=== PATIENT | female | born 1945 | race Caucasian/White ===

== ENCOUNTER → 2019-10-11 10:09 | Outpatient (CLI) | payer MEDICARE ==
[2019-10-13 10:57] VITALS: BMI 19.6
== END | disposition home or self-care (01) ==
LOC: D.RAD 10:09
PROVIDERS: ATTEND Internal Medicine Pulmonary Disease
DX: J44.9 Chronic obstructive pulmonary disease, unspecified (principal)

== ENCOUNTER 2019-10-13 10:51 | Inpatient (IN) | payer MEDICARE ==
[~2019-10-13] VITALS: Ht 157.5 cm; Wt 46.4 kg
[2019-10-13 11:45] LABS: BASOPHILS 0 % (0-2); EOSINOPHILS 0 % (0-7); HEMATOCRIT 37.5 % (36.0-48.0); HEMOGLOBIN 12.9 g/dL (12-16); IMMATURE GRANULOCYTES 0.1 % (0-5); LYMPHOCYTES 5.1 % (15-50); MCH 27.9 pg (26.0-34.0); MCHC 34.4 g/dL (31.0-37.0); MCV 81.2 fL (80.0-100.0); MEAN PLATELET VOLUME 8.9 fL (7.4-10.4); MONOCYTES 1.8 % (2-11); PLATELET COUNT 205 10x3/uL (130-400); RBC 4.62 10x6/uL (4.00-5.40); RDW 13.2 % (11.5-14.5); WBC 7.3 10x3/uL (4.8-10.8)
[2019-10-13 11:59] LABS: APTT 26.9 SECONDS (22.8-39.4); INR 0.93 (0.85-1.17); PROTIME 12.4 SECONDS (11.6-15.0)
[2019-10-13 12:18] LABS: ALBUMIN 3.9 g/dL (3.4-5.0); ALKALINE PHOSPHATASE 57 U/L (30-120); ALT (SGPT) 20 U/L (10-68); BILIRUBIN - TOTAL 0.49 mg/dL (0.2-1.3); CALC OSMOLALITY 252 mosm/kg (275-300); CALCIUM 8.3 mg/dL (8.5-10.1); CHLORIDE - SERUM 91 mmol/L (98-107); CKMB 4.1 U/L (0.0-3.6); CREATINE KINASE 120 UL (21-215); CREATININE - SERUM 0.9 mg/dL (0.6-1.3); GLUCOSE 137 mg/dL (74-106); PRO BNP 249 pg/mL (0-450); PROTEIN - SERUM 7.1 g/dL (6.4-8.2); SODIUM 126 mmol/L (136-145); UREA NITROGEN 8 mg/dL (7-18); eGFR NON AFRICAN AMERICAN 65 mL/min (90-120)
[2019-10-13 12:24] LABS: TROPONIN-I < 0.017 ng/mL (0.000-0.060)
[2019-10-13 12:39] LABS: POTASSIUM - SERUM 2.4 mmol/L (3.5-5.1)
[2019-10-13 13:00] VITALS: BP 159/96
--- NOTE | 2019-10-13 13:00 | NUR ---
RECEIVED PT TP ROOM AT THIS TIME.
[2019-10-13 14:00] VITALS: BP 148/87
[2019-10-13 16:22] VITALS: BP 149/92
[2019-10-13 20:00] VITALS: BP 153/91
--- NOTE | 2019-10-13 20:00 | NUR ---
PATIENT RESTING IN BED WATCHING TV. NO S/S OF ACUTE DISTRESS. NO C/O AT THIS TIME. PATIENT IS ON 3L OF O2 NASAL CANNULA. PATIENT HAS LEFT FOREARM SALINE LOC. IV IS PATENT WITHOUT REDNESS, SWELLING, OR TENDERNESS. PATIENT IS UP WITH ASSIST TO THE BATHROOM. PATIENT HAS SOB UPON EXERTION. CALL LIGHT WITHIN REACH. WILL CONTINUE TO MONITOR.
[2019-10-14] VITALS: BP 180/99
[2019-10-14 04:00] VITALS: BP 171/93
[2019-10-14] MEDS ORDERED: INCRUSE ELLI62.5 MCG INH (04:08)
[2019-10-14] MEDS ORDERED: ATIVAN0.5 MG PO (04:09)
[2019-10-14] MEDS ORDERED: FLUTICASONE PRO16 GM NASAL (04:10)
[2019-10-14] MEDS ORDERED: HYDROCODON-ACE1 EA10 PO (04:12)
[2019-10-14] MEDS ORDERED: GABAPENTIN300 MG PO (04:15)
[2019-10-14] MEDS ORDERED: MOBIC7.5 MG PO (04:15)
[2019-10-14] MEDS ORDERED: ALBUTEROL SULF8.5 GM INH (04:15)
[2019-10-14] MEDS ORDERED: LISINOPRIL-HCT1 EAC4 PO (04:17)
[2019-10-14] MEDS ORDERED: FLORINEF 0.1 M0.1 MG PO (04:17)
[2019-10-14] MEDS ORDERED: ISOSORBIDE MONO30 M1 (04:17)
[2019-10-14] MEDS ORDERED: K-DUR20 MEQ PO (04:18)
[2019-10-14] MEDS ORDERED: CLARITIN 10 MG10 MG PO (04:18)
[2019-10-14 05:46] LABS: BASOPHILS 0 % (0-2); EOSINOPHILS 0 % (0-7); HEMATOCRIT 38.6 % (36.0-48.0); HEMOGLOBIN 13.1 g/dL (12-16); IMMATURE GRANULOCYTES 0.2 % (0-5); MCH 27.6 pg (26.0-34.0); MCHC 33.9 g/dL (31.0-37.0); MCV 81.3 fL (80.0-100.0); MEAN PLATELET VOLUME 9.1 fL (7.4-10.4); NEUTROPHILS 87.8 % (40-80); PLATELET COUNT 221 10x3/uL (130-400); RBC 4.75 10x6/uL (4.00-5.40); RDW 13.2 % (11.5-14.5)
[2019-10-14 05:51] LABS: WBC 5.3 10x3/uL (4.8-10.8)
[2019-10-14 06:11] LABS: ALBUMIN 3.7 g/dL (3.4-5.0); ALKALINE PHOSPHATASE 54 U/L (30-120); ALT (SGPT) 19 U/L (10-68); BILIRUBIN - TOTAL 0.53 mg/dL (0.2-1.3); CALC OSMOLALITY 264 mosm/kg (275-300); CALCIUM 8.3 mg/dL (8.5-10.1); CHLORIDE - SERUM 96 mmol/L (98-107); CREATININE - SERUM 0.7 mg/dL (0.6-1.3); GLUCOSE 126 mg/dL (74-106); MAGNESIUM - SERUM 2.2 mg/dL (1.8-2.4); PROTEIN - SERUM 6.8 g/dL (6.4-8.2); SODIUM 132 mmol/L (136-145); UREA NITROGEN 8 mg/dL (7-18); eGFR NON AFRICAN AMERICAN 86 mL/min (90-120)
[2019-10-14 08:00] VITALS: BP 192/104
--- NOTE | 2019-10-14 09:49 | NUR ---
PT IS NEEDING HER NEUROTIN AND BP MEDICATION, EXPLAINED THAT HER MED REC IS COMPLETED AND I AM JUST WAITING ON DOCTORS TO RESTART MEDICATION, PT DAUGHTER AT BEDSIDE AND ASKED THAT HER LINENS BE CHANGED. NO OTHER NEEDS VOICED AT THIS TIME. CONTINUE WITH PLAN OF CARE
--- NOTE | 2019-10-14 10:18 | NUR ---
PT IS C/O CP AND SHORTNESS OF BREATH AND POUNDING HEADACHE. PT O2 IS 98% BP 192/104 NO BP MEDICATION STARTED YET, PT DAUGHTER HAS PT'S AT BEDSIDE AND GAVE IT TO HER, EKG SHOWED NORMAL SR. TELEMETRY ORDERED AND PLACED ON PT CONTINUE WITH PLAN OF CARE
[2019-10-14 12:00] VITALS: BP 185/89
--- NOTE | 2019-10-14 13:05 | NUR ---
I have reviewed this patient and I concur with the Shift Assessment completed by the Licensed Practical Nurse today this shift.
[2019-10-14 14:48] VITALS: BMI 19.4
[2019-10-14 16:00] VITALS: BP 131/80
[2019-10-14 16:40] LABS: POTASSIUM - URINE 31.9 MMOL/L (12.0-62.0)
[2019-10-14 20:00] VITALS: BP 128/77
--- NOTE | 2019-10-14 20:00 | NUR ---
PATIENT RESTING IN BED WITH DAUGHTER AT BEDSIDE. NO S/S OF ACUTE DISTRESS. NO C/O AT THIS TIME. PATIENT IS ON 3L NASAL CANNULA AND HAS BIPAP PRN. PATIENT HAS LEFT FOREARM, SALINE LOC. IV IS PATENT WITHOUT REDNESS, SWELLING, OR TENDERNESS. PATIENT HAS TELEMETRY. PATIENT IS UP WITH ASSIST TO BEDSIDE COMMODE. CALL LIGHT WITHIN REACH. WILL CONTINUE TO MONITOR.
--- NOTE | 2019-10-15 02:13 | NUR ---
I have reviewed this patient and I concur with the Shift Assessment completed by the Licensed Practical Nurse today this shift.
[2019-10-15 06:44] LABS: HEMATOCRIT 38.7 % (36.0-48.0); HEMOGLOBIN 12.8 g/dL (12-16); LYMPHOCYTES 9.6 % (15-50); MCH 27.8 pg (26.0-34.0); MCHC 33.1 g/dL (31.0-37.0); MEAN PLATELET VOLUME 8.7 fL (7.4-10.4); NEUTROPHILS 87.1 % (40-80); PLATELET COUNT 250 10x3/uL (130-400); RDW 13.4 % (11.5-14.5)
[2019-10-15 06:45] LABS: MCV 84.1 fL (80.0-100.0)
[2019-10-15 07:17] LABS: ALBUMIN 3.3 g/dL (3.4-5.0); ANION GAP 10.3 mmol/L (8-16); BILIRUBIN - TOTAL 0.38 mg/dL (0.2-1.3); CARBON DIOXIDE 28.1 mmol/L (21.0-32.0); CREATININE - SERUM 0.8 mg/dL (0.6-1.3); MAGNESIUM - SERUM 2.2 mg/dL (1.8-2.4); POTASSIUM - SERUM 3.4 mmol/L (3.5-5.1); PROTEIN - SERUM 6.3 g/dL (6.4-8.2)
--- NOTE | 2019-10-15 07:26 | NUR ---
PT K+ IS 3.4 THIS MORNING, WILL ADMINISTER 40MEQ OF K+ WITH MORNING MEDS, NO OTHER NEEDS AT THIS TIME, CONTINUE WITH PLAN OF CARE
[2019-10-15 08:51] VITALS: BP 138/85
--- NOTE | 2019-10-15 10:08 | NUR ---
PATIENT ALERT AND ORIENTED. RESTING QUIETLY IN BED WITH EYES OPEN. RESPIRATIONS SOB COUGHING UP MUCUS. NO SIGNS OF DISTRESS NOTED. O2 3L. IV LEFTFOREARM SALINE LOCK. TELEMETRY SINUS TACH 106. SIDE RAILS UP X3. CALL LIGHT IN REACH. WILL CONTINUE TO MONITOR.
[2019-10-15 14:02] VITALS: BP 137/77
--- NOTE | 2019-10-15 17:35 | NUR ---
PATIENT ALERT AND ORIENTED. RETURNED FROM XRAY. RESPIRATIONS EVEN NON LABORED. NO SIGNS OF DISTRESS NOTED. STATES PAIN IS "10." NORCO GIVEN AND TOLERATED WELL. POTASSTIUM LEVEL 3.5. PO POTASSIUM GIVEN AND TOLERATED WELL. DENIES FURTHER NEEDS. SIDE RAILS UPX3. CALL LIGHT IN REACH. WILL CONTINUE TO MONITOR FOR SAFETY.
[2019-10-15 18:21] VITALS: BP 130/46
--- NOTE | 2019-10-15 18:41 | NUR ---
PATIENT ALERT AND ORIENTED. IN BED RESTING QUIETLY. RSPIRATIONS EVEN NONLABORED. NO SIGNS OF DISTRESS NOTED. DENIES FURTHER NEEDS. SIDE RAILS UP X3. CALL LIGHT IN REACH. WILL CONTINUE TO MONITOR FOR SAFETY.
[2019-10-15 20:00] VITALS: BP 135/77
--- NOTE | 2019-10-15 20:00 | NUR ---
PATIENT RESTING IN BED WATCHING TV. NO S/S OF ACUTE DISTRESS. NO C/O AT THIS TIME. PATIENT IS ON 3L NASAL CANNULA AND HAS BIPAP PRN. PATIENT HAS A LEFT FOREARM SALINE LOC. IV IS PATENT WITHOUT REDNESS, SWELLING, OR TENDERNESS. PATIENT IS ON TELEMETRY. PATIENT IS UP ADLIB BUT HAS SOB UPON EXERTION. CALL LIGHT WITHIN REACH. WILL CONTINUE TO MONITOR.
--- NOTE | 2019-10-15 20:05 | NUR ---
MARKED EX WHEEZING NOTED TO ANTERIOR PINTO AUSC. APPLIED [id number] 35% PER SOB PT TOLERATED WELL SPO2 95% AND HOLDING NURSE NOTIFIED
--- NOTE | 2019-10-16 00:30 | NUR ---
PATIENT IV INFILTRATED. IV TAKEN OUT OF LEFT FOREARM. CATHETER TIP INTACT. NEW IV PLACED IN RIGHT FOREARM. IV IS PATENT WITHOUT REDNESS, SWELLING, OR TENDERNESS. IV IS SALINE LOC. CALL LIGHT WITHIN REACH. WILL CONTINUE TO MONITOR.
--- NOTE | 2019-10-16 03:00 | NUR ---
I have reviewed this patient and I concur with the Shift Assessment completed by the Licensed Practical Nurse today this shift.
[2019-10-16 04:00] VITALS: BP 141/87
[2019-10-16 07:52] LABS: HEMOGLOBIN 13.5 g/dL (12-16); LYMPHOCYTES 4.3 % (15-50); MCH 27.8 pg (26.0-34.0); MCHC 32.9 g/dL (31.0-37.0); MCV 84.4 fL (80.0-100.0); MEAN PLATELET VOLUME 8.9 fL (7.4-10.4); NEUTROPHILS 93.3 % (40-80); PLATELET COUNT 303 10x3/uL (130-400); RBC 4.86 10x6/uL (4.00-5.40); RDW 13.2 % (11.5-14.5); WBC 6.6 10x3/uL (4.8-10.8)
[2019-10-16 08:09] LABS: ALBUMIN 3.7 g/dL (3.4-5.0); ALKALINE PHOSPHATASE 50 U/L (30-120); ALT (SGPT) 22 U/L (10-68); BILIRUBIN - TOTAL 0.42 mg/dL (0.2-1.3); CALC OSMOLALITY 264 mosm/kg (275-300); CALCIUM 8.1 mg/dL (8.5-10.1); CARBON DIOXIDE 27.2 mmol/L (21.0-32.0); CHLORIDE - SERUM 96 mmol/L (98-107); CREATININE - SERUM 0.7 mg/dL (0.6-1.3); GLUCOSE 127 mg/dL (74-106); MAGNESIUM - SERUM 2.1 mg/dL (1.8-2.4); POTASSIUM - SERUM 3.4 mmol/L (3.5-5.1); PROTEIN - SERUM 6.8 g/dL (6.4-8.2); SODIUM 132 mmol/L (136-145); eGFR NON AFRICAN AMERICAN 86 mL/min (90-120)
[2019-10-16 08:17] LABS: UREA NITROGEN 8 mg/dL (7-18)
[2019-10-16 09:24] VITALS: BP 159/92
--- NOTE | 2019-10-16 10:54 | NUR ---
PATIENT ALERT AND ORIENTED RESTING IN BED WITH EYES OPEN. REPIRATIONS EVEN NON LABORED. NO SIGNS OF DISTRESS NOTED. ON 3 L O2. RIGHT HAND IV SALINE LOCK. ON TELEMETRY SINUS RHYTHM 93. FAMILY AT BEDSIDE. DENIES FURTHER NEEDS. SIDE RAILS UP X3. CALL LIGHT IN REACH. WILL CONTINUE TO MONITOR FOR SAFETY.
[2019-10-16 12:54] VITALS: BP 151/89
--- NOTE | 2019-10-16 16:32 | NUR ---
I have reviewed this patient and I concur with the Shift Assessment completed by the Licensed Practical Nurse today this shift.
[2019-10-16 17:45] VITALS: BP 139/79
--- NOTE | 2019-10-16 18:19 | NUR ---
PATIENT ALERT AND ORIENTED. RESTING QUIETLY IN BED WITH EYES OPEN.RESPIRATIONS EVEN NON LABORED. NO SIGNS OF DISTRESS NOTED. DENIES FURTHER NEEDS. SIDE RAILS UP X3. CALL LIGHT IN REACH. WILL CONTINUE TO MONITOR FOR SAFETY.
[2019-10-16 20:00] VITALS: BP 126/81
--- NOTE | 2019-10-16 20:00 | NUR ---
ALERT SITTING UP ON SIDE OF BED, AUDIABLE WHEEZING NOTED O2 IN CONTINOUS USE, SEE SHIFT ASSESSMENT, CALL LIGHT IN REACH, RT NOTIFIED FOR BREATHING TX
--- NOTE | 2019-10-16 21:22 | NUR ---
APPLIED BIPAP PER SOB BREATH/EX WHEEZING ADMINISTER TX INLINE PT TOLERATED WELL
[2019-10-17 04:12] VITALS: BP 146/89
[2019-10-17 05:56] LABS: BASOPHILS 0 % (0-2); EOSINOPHILS 0 % (0-7); HEMATOCRIT 42.2 % (36.0-48.0); HEMOGLOBIN 14.1 g/dL (12-16); IMMATURE GRANULOCYTES 0.5 % (0-5); LYMPHOCYTES 5.4 % (15-50); MCH 27.9 pg (26.0-34.0); MCHC 33.4 g/dL (31.0-37.0); MCV 83.4 fL (80.0-100.0); MONOCYTES 3.8 % (2-11); NEUTROPHILS 90.3 % (40-80); PLATELET COUNT 291 10x3/uL (130-400); RBC 5.06 10x6/uL (4.00-5.40); RDW 13.3 % (11.5-14.5); WBC 6.3 10x3/uL (4.8-10.8)
[2019-10-17 06:08] LABS: ALBUMIN 3.8 g/dL (3.4-5.0); ALKALINE PHOSPHATASE 48 U/L (30-120); ALT (SGPT) 22 U/L (10-68); CALC OSMOLALITY 262 mosm/kg (275-300); CALCIUM 8.2 mg/dL (8.5-10.1); CARBON DIOXIDE 25.4 mmol/L (21.0-32.0); CHLORIDE - SERUM 96 mmol/L (98-107); CREATININE - SERUM 0.7 mg/dL (0.6-1.3); GLUCOSE 157 mg/dL (74-106); POTASSIUM - SERUM 3.8 mmol/L (3.5-5.1); PROTEIN - SERUM 7.1 g/dL (6.4-8.2); SODIUM 130 mmol/L (136-145); UREA NITROGEN 10 mg/dL (7-18); eGFR NON AFRICAN AMERICAN 86 mL/min (90-120)
[2019-10-17 09:08] VITALS: BP 137/90
--- NOTE | 2019-10-17 09:44 | NUR ---
PT SITTING AT SIDE OF BED, ASSISSTED PT TO BSC, PT IS COUGHING UP YELLOW AND GREEN MUCUS, GAVE PT CUP FOR CULTURE COLLECTION, NO OTHER NEEDS VOICED AT THIS TIME, CONTINUE WITH PLAN OF CARE
--- NOTE | 2019-10-17 11:34 | NUR ---
I have reviewed this patient and I concur with the Shift Assessment completed by the Licensed Practical Nurse today this shift.
[2019-10-17 13:06] VITALS: BP 152/82
--- NOTE | 2019-10-17 16:22 | NUR ---
OT NOTE: PT VERY SOB JUST LIEING IN BED.. DIFFICULT TO TALK DUE TO SOB. STATED THAT SHE WAS UNABLE TO PERFORM THERAPY TODAY. WILL ATTEMPT TOMORROW. DWAINE NUNES, OTR/L
[2019-10-17 18:04] VITALS: BP 135/80
[2019-10-17 20:00] VITALS: BP 125/77
[2019-10-18 04:00] VITALS: BP 134/80
[2019-10-18 06:31] LABS: HEMATOCRIT 40.8 % (36.0-48.0); HEMOGLOBIN 13.3 g/dL (12-16); LYMPHOCYTES 3.3 % (15-50); MCH 27.4 pg (26.0-34.0); MCHC 32.6 g/dL (31.0-37.0); MCV 84.1 fL (80.0-100.0); MEAN PLATELET VOLUME 8.7 fL (7.4-10.4); NEUTROPHILS 90.6 % (40-80); PLATELET COUNT 292 10x3/uL (130-400); RBC 4.85 10x6/uL (4.00-5.40); RDW 13.2 % (11.5-14.5)
[2019-10-18 06:59] LABS: WBC 10.6 10x3/uL (4.8-10.8)
[2019-10-18 07:31] LABS: ALBUMIN 3.5 g/dL (3.4-5.0); ALKALINE PHOSPHATASE 45 U/L (30-120); ALT (SGPT) 22 U/L (10-68); BILIRUBIN - TOTAL 0.45 mg/dL (0.2-1.3); CALC OSMOLALITY 261 mosm/kg (275-300); CALCIUM 7.9 mg/dL (8.5-10.1); CARBON DIOXIDE 21.9 mmol/L (21.0-32.0); CHLORIDE - SERUM 96 mmol/L (98-107); CREATININE - SERUM 0.7 mg/dL (0.6-1.3); GLUCOSE 140 mg/dL (74-106); MAGNESIUM - SERUM 2.1 mg/dL (1.8-2.4); PHOSPHOROUS 2.7 mg/dL (2.5-4.9); POTASSIUM - SERUM 3.6 mmol/L (3.5-5.1); PROTEIN - SERUM 6.6 g/dL (6.4-8.2); SODIUM 130 mmol/L (136-145); UREA NITROGEN 9 mg/dL (7-18); eGFR NON AFRICAN AMERICAN 86 mL/min (90-120)
--- NOTE | 2019-10-18 07:32 | NUR ---
PT ALERT AND ORIENTED X4 UPON ENTERING. UP WITH ASSIST TO BEDSWIDE COMMODE, 2L O2, RIGHT FOREARM, SALINE LOCKED. TELEMETRY, BIPAP @ NIGHT, DAILY #. 1.2L FLUID RESTRICTION. PT RESTING COMFORTABLY IN BED, DENIES ANY NEEDS. WILL CONTINUE TO MONITOR.
--- NOTE | 2019-10-18 08:24 | NUR ---
PT ALERT AND ORIENTED UPON ENTERING. ADMINISTERED MORNING MEDICATION, NO DIFFICULTIES. FAMILY AT BEDSIDE. DENIES ANY NEEDS. WILL CONTINUE TO MONITOR.
[2019-10-18 09:38] VITALS: BP 157/85
--- NOTE | 2019-10-18 11:13 | NUR ---
ADMINISTERED MEDICATION, NO DIFFICULTIES. UPRIGHT ON BEDSIDE. FAMILY IN ROOM. DENIES ANY NEEDS. WILL CONTINUE TO MONITOR.
[2019-10-18 13:00] VITALS: BP 124/77
--- NOTE | 2019-10-18 13:17 | NUR ---
ADMINISTERED PRN HYDROCODONE FOR ABDOMINAL PAIN 01/13. DENIES ANY OTHER NEEDS. WILL CONTINUE TO MONITOR.
--- NOTE | 2019-10-18 14:26 | NUR ---
ADMINISTERED MEDICATION, NO DIFFICULTIES. SPEECH THERAPY IN ROOM AT THIS TIME OBSERVING PT SWALLOW PILLS. DENIES ANY OTHER NEEDS. WILL CONTINUE TO MONITOR.
--- NOTE | 2019-10-18 16:40 | NUR ---
GAVE MEDICATION. PT PULLED HER OWN IV OUT. DO NOT KNOW IF THE CATHETER TIP WAS INTACT OR NOT BECUASE PT HAS THROWN IT AWAY. PT IS BECOMING NONCOMPLIANT BECAUES SHE WANTS TO COME HOME. HAS AGREED TO LET ME MAKE AN ATTEMPT TO START A NEW IV.
--- NOTE | 2019-10-18 16:50 | NUR ---
NEW IV STARTED IN LEFT FOREARM. TOLERATED WELL.
[2019-10-18 17:55] VITALS: BP 134/92
--- NOTE | 2019-10-18 17:57 | NUR ---
HUNG IV ABX. PT ON BEDSIDE EATING DINNER. DENIES ANY NEEDS. WILL CONTINUE TO MONITOR.
--- NOTE | 2019-10-18 18:00 | NUR ---
I have reviewed this patient and I concur with the Shift Assessment completed by the Licensed Practical Nurse today this shift.
[2019-10-18 20:00] VITALS: BP 125/73
[2019-10-19 04:00] VITALS: BP 143/80
[2019-10-19 08:06] LABS: HEMATOCRIT 40.9 % (36.0-48.0); HEMOGLOBIN 13.4 g/dL (12-16); LYMPHOCYTES 3.3 % (15-50); MCH 27.5 pg (26.0-34.0); MCHC 32.8 g/dL (31.0-37.0); MCV 83.8 fL (80.0-100.0); MEAN PLATELET VOLUME 9.3 fL (7.4-10.4); NEUTROPHILS 92.5 % (40-80); PLATELET COUNT 293 10x3/uL (130-400); RBC 4.88 10x6/uL (4.00-5.40); RDW 13.6 % (11.5-14.5)
[2019-10-19 08:07] LABS: WBC 14.5 10x3/uL (4.8-10.8)
[2019-10-19 08:26] LABS: ALBUMIN 3.6 g/dL (3.4-5.0); ANION GAP 14.4 mmol/L (8-16); BILIRUBIN - TOTAL 0.47 mg/dL (0.2-1.3); CALCIUM 8.3 mg/dL (8.5-10.1); CARBON DIOXIDE 23.4 mmol/L (21.0-32.0); CREATININE - SERUM 0.8 mg/dL (0.6-1.3); MAGNESIUM - SERUM 2.1 mg/dL (1.8-2.4); POTASSIUM - SERUM 3.8 mmol/L (3.5-5.1); PROTEIN - SERUM 6.6 g/dL (6.4-8.2)
[2019-10-19 08:30] VITALS: BP 155/90
--- NOTE | 2019-10-19 09:07 | NUR ---
OT NOTE: (DOS 10/18/2019) UPON ENTERING PT HAS DISCARDER O2. ARMANDO ADVISED PT SHE NEEDS TO PUT CANNULA BACK ON. PT COMPLIED. PT FRANTICALLY LOOKING FOR FIXADENT. ARMANDO CAUTIONED PT TO RETURN TO SITTING AT EOB BED. PT EXHIBITED POOR SAFETY AWARENESS. PT COMPLETED SIT TO STAND WITH CGA. PT COMPLETED CHAIR TO BED TSF WITH CGA. PT COMPLETED BUE AROM AACTIVITIES AT EOB WITH SBA. PT COMPLETED HAIR BRUSH WITH SBA AT EOB. ARMANDO REPORTED TO NURSING PT POOR SAFETY AWARENESS. ARMANDO ADVISED NURSING PT WOULD BENEFIT FROM BED ALARM. NURSING STATED PT DID NOT SCORE IN RANGE FOR BED ALARM, BUT THAT SHE WOULD KEEP CLOSE EYE OUT FOR PT. [phone] THANK YOU,TR PHILLIPS
--- NOTE | 2019-10-19 09:14 | MORECARE ---
CASE MANAGEMENT DISCHARGE SUMMARY PATIENT: MARKUS DIAZ UNIT: [id number] ADM DATE: 10/13/19 AGE: 74 : 44 SEX: F ROOM/BED: D.2236 AUTHOR: SEAN ANNA PHYSICIAN: REFERRING PHYSICIAN: MARIAN MARKHAM MD DATE OF SERVICE: 10/19/19 Discharge Plan Patient Name: MARKUS [facility]IA[facility] [facility] 1945 Planned Disposition: Home Anticipated Discharge Date: Discharge Date: Expected LOS: Initial Reviewer: [email or web address] Initial Review Date: 10/19/2019 Generated: 10/19/19 10:13 am Patient Name: MARKUS DIAZ Page [id number] at 0914 All edits/amendments must be made on the electronic document DICTATION DATE: 10/19/19912 SPECIAL SKILLS OFFICER: SHIRAZ 10/19/19912 RPT#: [id number] DC DATE: STATUS: ADM IN [facility] [address] [place] [address] END OF REPORT
--- NOTE | 2019-10-19 09:21 | MORECARE ---
CASE MANAGEMENT DISCHARGE SUMMARY PATIENT: MARKUS DIAZ UNIT: [id number] ADM DATE: 10/13/19 AGE: 74 : 44 SEX: F ROOM/BED: D.2236 AUTHOR: WILFRIDO,DOC PHYSICIAN: REFERRING PHYSICIAN: MARIAN MARKHAM MD DATE OF SERVICE: 10/19/19 Discharge Plan Patient Name: MARKUS DIAZ Facility: [facility]:[place] : 1945 Planned Disposition: Home Anticipated Discharge Date: Discharge Date: Expected LOS: Initial Reviewer: [email or web address] Initial Review Date: 10/19/2019 Generated: 10/19/19 10:20 am Comments DCP- Discharge Planning Updated by [email or web address]: Shreya Anand on 10/19/19 8:[address] Patient Name: MARKUS DIAZ Admission Status: ER Accout number: [id number] Admission Date: 10-13-2019 : 1945 Admission Diagnosis: Attending: MARCELLUS Current LOS: 6 Anticipated DC Date: Planned Disposition: Home Primary Insurance: MEDICARE A & B Discharge Planning Comments: CM met with patient at bedside after explaining CM role and obtaining verbal consent. CM discussed availability / needs of home health, REHAB and medical equipment. DAUGHTER COOPER IS AT BEDSIDE. SHE STATES PATIENT LIVES WITH HER, 24 HOUR CAREGIVER. HAS EQUIPMENT AT HOME AND 02 WITH [facility]. PATIENT STATES READY TO GO HOME. DOES NOT NEED REHAB, HH OR SNF. IMM SIGNED. ANTICIPATE DC TO HOME SOON. Cutter Operator: Shreya Anand DCPIA - Discharge Planning Initial Assessment Updated by [email or web address]: Shreya Anand on 10/19/19 9:13 am * Is the patient Alert and Oriented? Yes * PCP HEIDI HATFIELD * Preadmission Environment Home with Family * ADLs Independent * Other Equipment 02, WC, WALKER, HOSPITAL BED * List name and contact numbers for known caregivers / representatives who currently or will assist patient after discharge: ROSA GAMBOA * Please name any agencies selected above. HAS 24 HOUR CARE AND LIVES WITH DAUGHTER * Additional services required to return to the preadmission environment? No * Can the patient safely return to the preadmission environment? Yes * Has this patient been hospitalized within the prior 30 days at any hospital? No Coverage Notice Reviewer: [id number] Hugo Anand Notice Issued Date-Time: 10/19/2019 9:15 Notice Type: IM Discharge Notice Notice Delivered To: Patient Relationship to Patient: Residential Aide Name: Delivery Method: HAND - Hand Delivered Sonali Days: Prior Verbal Notification: Recipient Understood Notice: Yes Recipient Signature: Yes Med Rec Note Co-signed by Attending: Coverage Notice Comment: Last DP export: 10/19/19 8:13 a Patient Name: MARKUS DIAZ Page [id number] at 0921 All edits/amendments must be made on the electronic document DICTATION DATE: 10/19/19919 SERVER SYSTEMS ADMINISTRATOR: SHIRAZ 10/19/19919 RPT#: [id number] DC DATE: STATUS: ADM IN [facility] [address] [place] [address] END OF REPORT
--- NOTE | 2019-10-19 10:21 | NUR ---
PATIENT UP SITTING ON SIDE OF BED IN ROOM. AFTER DOING ASSESSMENTS I REALIZED PT WAS A FALL RISK. HOWEVER, SHE IS STEADY ON HER FEET AND ALERT AND ORIENTED. EXPLAINED RISKS TO PT. PT SIGNED BED REFUSAL WAIVER. CL IN REACH. DAUGHTER MARBELLA IN ROOM. WCTM
[2019-10-19 12:00] VITALS: BP 142/96
[2019-10-19] MEDS ORDERED: WELLBUTRIN XL150 M1 PO (12:06)
[2019-10-19] MEDS ORDERED: TESSALON PERLE100 MG PO (12:07)
[2019-10-19] MEDS ORDERED: MUCINEX600 MG PO (12:08)
[2019-10-19] MEDS ORDERED: DALIRESP250 MCG PO (12:08)
[2019-10-19] MEDS ORDERED: SINGULAIR10 MG PO (12:08)
[2019-10-19] MEDS ORDERED: LISINOPRIL10 MG PO (12:10)
[2019-10-19] MEDS ORDERED: PROCARDIA XL60 MG PO (12:13)
[2019-10-19] MEDS ORDERED: NICODERM CQ1 EAC3 TOPICAL (14:29)
--- NOTE | 2019-10-19 15:04 | NUR ---
OT NOTE: PT DRESSED, DTR AT BEDSIDE..PT HAD REMOVED 02 STATING THAT SHE DIDNT NEED IT; DTR ARGUEING WITH PT ABOUT 02. PT VERY ANXIOUS AND ALMOST MANIC.. STANDING UP TO DOFF SOCKS AND NED SHOES..EDUCATED PT ON SAFETY AWARENESS BUT SHE CONTINUED TO DO SHE WANTED. AMB IN ROOM WITHOUT WALKER AND 02..HAD TO STOP PT AND PLACE O2 ON HER AND PROVIDE WITH WALKER DUE TO UNSTEADY GAIT; PT AMB INTO HALLWAY GREATER THAN 150 FT WITH 02 AT 4L AND WALKER.. PERFORMED WELL WITH THIS. PT DID NOT WANT TO SIT UP IN CHAIR BECAUSE SHE SAID THAT SHE WAS GOING HOME SOON, SO SHE CLIMED BACK IN BED. PROVIDED PT WITH COFFEE UPON REQUEST. INSTRUCTED TO KEEP HER [address] DWAINE NUNES, OTR/L [phone]
[2019-10-19 15:21] VITALS: BP 142/96; Ht 157.5 cm; Wt 46.4 kg
--- NOTE | 2019-10-19 15:59 | NUR ---
DISCHARGE INSTRUCTIONS GIVEN. PT RECEIVING LAST BAG OF DIFLUCAN BEFORE LEAVING. DAUGHTER COOPER HERE FOR PACKAGING SALES. WILL NOTIFY ME WHEN IV ABX FINISHED TO REMOVE IV THERAPY.
--- NOTE | 2019-10-19 16:06 | NUR ---
PATIENT REMOVED IV THERAPY. WALKING TO FRONT DOOR WHERE COOPER IS WAITING.
--- NOTE | 2019-10-19 16:10 | NUR ---
OT NOTE: PT COMPLETED SUPINE TO SIT WITH SPV. PT COMPLETED EOB SITTING WITH SPV. PT COMPLETED UB HYGIENE TASKS WITH SETUP. PT IS IMPULSIVE AND EXHIBITED POOR SAFETY AWARENESS. [phone] THANK YOU,TR PHILLIPS
--- NOTE | 2019-10-20 01:32 | MORECARE ---
CASE MANAGEMENT DISCHARGE SUMMARY PATIENT: MARKUS DIAZ UNIT: [id number] ADM DATE: 10/13/19 AGE: 74 : 44 SEX: F ROOM/BED: D.2236 AUTHOR: WILFRIDO,DOC PHYSICIAN: REFERRING PHYSICIAN: MARIAN MARKHAM MD DATE OF SERVICE: 10/20/19 Discharge Plan Patient Name: MARKUS DIAZ Facility: [facility]:[place] : 1945 Planned Disposition: Home Anticipated Discharge Date: Discharge Date: 10/19/2019 Expected LOS: Initial Reviewer: [email or web address] Initial Review Date: 10/19/2019 Generated: 10/20/19 2:31 am Comments DCP- Discharge Planning Updated by [email or web address]: Shreya Anand on 10/19/19 8:[address] Patient Name: MARKUS DIAZ Admission Status: ER Accout number: [id number] Admission Date: 10-13-2019 : 1945 Admission Diagnosis: Attending: MARCELLUS Current LOS: 6 Anticipated DC Date: Planned Disposition: Home Primary Insurance: MEDICARE A & B Discharge Planning Comments: CM met with patient at bedside after explaining CM role and obtaining verbal consent. CM discussed availability / needs of home health, REHAB and medical equipment. DAUGHTER COOPER IS AT BEDSIDE. SHE STATES PATIENT LIVES WITH HER, 24 HOUR CAREGIVER. HAS EQUIPMENT AT HOME AND 02 WITH [facility]. PATIENT STATES READY TO GO HOME. DOES NOT NEED REHAB, HH OR SNF. IMM SIGNED. ANTICIPATE DC TO HOME SOON. Geoscience Professor: Shreya Anand DCPIA - Discharge Planning Initial Assessment Updated by [email or web address]: Shreya Anand on 10/19/19 9:13 am * Is the patient Alert and Oriented? Yes * PCP HEIDI HATFIELD * Preadmission Environment Home with Family * ADLs Independent * Other Equipment 02, WC, WALKER, HOSPITAL BED * List name and contact numbers for known caregivers / representatives who currently or will assist patient after discharge: ROSA GAMBOA * Please name any agencies selected above. HAS 24 HOUR CARE AND LIVES WITH DAUGHTER * Additional services required to return to the preadmission environment? No * Can the patient safely return to the preadmission environment? Yes * Has this patient been hospitalized within the prior 30 days at any hospital? No Coverage Notice Reviewer: [id number] Hugo Shreyajaylan Anand Notice Issued Date-Time: 10/19/2019 9:15 Notice Type: IM Discharge Notice Notice Delivered To: Patient Relationship to Patient: Head Custodian Name: Delivery Method: HAND - Hand Delivered Sonali Days: Prior Verbal Notification: Recipient Understood Notice: Yes Recipient Signature: Yes Med Rec Note Co-signed by Attending: Coverage Notice Comment: Last DP export: 10/19/19 8:21 a Patient Name: MARKUS DIAZ Page 90250 at 0132 All edits/amendments must be made on the electronic document DICTATION DATE: 10/20/19130 PAYROLL AND BENEFITS ASSISTANT: SHIRAZ 10/20/19130 RPT#: [id number] DC DATE:10/19/19 STATUS: DIS IN [facility] [address] [place] [address] END OF REPORT
== END 2019-10-19 16:19 | disposition home or self-care (01) | DRG 189 ==
LOC: D.ER 10:51 → D.MS 17:05
PROVIDERS: Family Medicine; Internal Medicine; Internal Medicine Pulmonary Disease; ADMIT Family Medicine; ATTEND Family Medicine
DX: J96.21 Acute and chronic respiratory failure with hypoxia (principal); E87.1 Hypo-osmolality and hyponatremia; F17.203 Nicotine dependence unspecified, with withdrawal; J98.11 Atelectasis; I13.0 Hypertensive heart and chronic kidney disease with heart failure and stage 1 through stage 4 chronic kidney disease, or unspecified chronic kidney disease; J20.9 Acute bronchitis, unspecified; E87.6 Hypokalemia; Z99.81 Dependence on supplemental oxygen; F41.8 Other specified anxiety disorders; F03.90 Unspecified dementia, unspecified severity, without behavioral disturbance, psychotic disturbance, mood disturbance, and anxiety; J30.9 Allergic rhinitis, unspecified; K21.9 Gastro-esophageal reflux disease without esophagitis; K44.9 Diaphragmatic hernia without obstruction or gangrene; J43.9 Emphysema, unspecified; I50.9 Heart failure, unspecified; Z86.73 Personal history of transient ischemic attack (TIA), and cerebral infarction without residual deficits; N18.9 Chronic kidney disease, unspecified